=== PATIENT | female | born 1995 | race Two or more races ===

== ENCOUNTER → 2024-11-05 | Outpatient (CLI) | payer MEDICAID, SELFPAY ==
--- NOTE | 2024-11-05 15:00 | XR_ITS ---
Examination: Pelvic ultrasound, transabdominal, complete Technique: Transabdominal ultrasound of the pelvis performed using grayscale imaging Date and time of exam: November 05, 2024 1804 hours INDICATIONS: Pelvic pain beginning several years ago FINDINGS: Uterus 7.6 cm endometrial stripe 0.7 cm No uterine mass or intrauterine gestation Right ovary 4.0 cm arterial flow Left ovary 3.2 cm arterial flow IMPRESSION: Negative examination
== END | disposition home or self-care (01) ==
PROVIDERS: PCP Physician Assistant; Referring Provider Physician Assistant; Visit Provider Physician Assistant
DX: R10.2 Pelvic and perineal pain (principal)
CPT/HCPCS: 76856